=== PATIENT | male | born 1950 ===

== ENCOUNTER 2021-09-04 08:59 | Day surgery (SDC) | payer BC ==
[~2021-09-04] VITALS: Ht 170.2 cm; Wt 117.2 kg
[2021-09-04] MEDS ORDERED: COZAAR100 MG PO (09:37)
[2021-09-04] MEDS ORDERED: HCTZ 25MG TAB25 MG PO (09:38)
[2021-09-04 09:54] VITALS: BP 148/87; PULSE 74; TEMP 98.3
[2021-09-04 13:25] VITALS: BP 129/67; PULSE 85; TEMP 97.6
[2021-09-04] MEDS ORDERED: MOTRIN 600600 MG/TAB PO (13:25)
[2021-09-04] MEDS ORDERED: NORCO 325 MG-51 TAB PO (13:25)
--- NOTE | 2021-09-04 13:25 | NUR ---
Patient is drowsey, but oriented. He is slightly confused. Vitals obtained. requested water to drink and a muffin.
[2021-09-04 13:40] VITALS: BP 120/60; PULSE 71
--- NOTE | 2021-09-04 13:40 | NUR ---
Patient is tolerating his water and muffin well. Denies N/V. Requested RN call his . Vitals obtained. Will continue to monitor. Call cochran is within reach.
[2021-09-04 13:55] VITALS: BP 122/59; PULSE 73
--- NOTE | 2021-09-04 13:55 | NUR ---
Patient ambulated to with his and was able to void successfully. Expresses desire to be discharged. Vitals obtained. Call cochran is within reach.
--- NOTE | 2021-09-04 14:25 | NUR ---
IV discontinued at this time and pressure bandage applied. No redness or swelling noted. Catheter tip intact. Discharge instructions reviewed at this time. Patient verbalized understanding and signed related paperwork. Escorted out by [facility] to [facility]. Patient was transferred into the care of his , Amy at this time who is driving. Patient has his personal belongings and discharge paperwork.
== END 2021-09-04 14:30 | disposition home or self-care (01) ==
LOC: SDCO 08:59
DX: K42.0 Umbilical hernia with obstruction, without gangrene (principal); I10 Essential (primary) hypertension; F17.220 Nicotine dependence, chewing tobacco, uncomplicated; E66.9 Obesity, unspecified; L90.9 Atrophic disorder of skin, unspecified; Z68.38 Body mass index [BMI] 38.0-38.9, adult; Z79.899 Other long term (current) drug therapy
CPT/HCPCS: C1781; J0690; J2704; J3010; J7120